=== PATIENT | male | born 1985 | race Caucasian/White ===

== ENCOUNTER 2024-03-25 09:10 | Emergency (ER) | payer OTHER ==
[2024-03-25] MEDS ORDERED: CEFEPIME 2 GM/100 ML BAG IVPB ONE (09:34)
[2024-03-25] MEDS: DIPHTH,PERTUSS(ACELL),TET 0.5 ML DISP.SYRIN IM ONE (09:48)
[2024-03-25] MEDS: CEFAZOLIN SODIUM 2 GM VIAL IVPB ONE (09:49)
[2024-03-25 09:58] LABS: BASO % 0.2 % (0-2.0); EOS % 2.3 % (0-4.5); HEMOGLOBIN 15.1 GM/dL (11.7-16.9); LYMPH % 37.7 % (8-40); MCH 28.7 pg (25.7-33.7); MCHC 34.4 g/dl (32.0-35.9); MEAN CELL VOLUME 83.6 fl (80-96); MEAN PLT VOLUME 9.2 fl (7.5-11.1); MONO % 4.6 % (3.8-10.2); NEUT % 55.2 % (42.8-82.8); PLATELET COUNT 131 10^3/uL (134-434); RBC 5.26 M/mm3 (4.00-5.60); RDW 12.8 % (11.9-15.9); WHITE BLOOD COUNT 6.3 K/mm3 (4.0-10.0)
[2024-03-25 10:06] LABS: INR 0.95 (0.83-1.09); PROTHROMBIN TIME (PATIENT) 10.8 SEC (9.7-13.0)
[2024-03-25 10:08] LABS: ACTIVATED PTT 24.7 SECONDS (25.2-36.5)
[2024-03-25 10:26] VITALS: RESP 18; BMI 25.5
[2024-03-25 10:28] LABS: POTASSIUM 3.7 mmol/L (3.5-5.1)
[2024-03-25 10:30] LABS: BLOOD UREA NITROGEN 15.5 mg/dL (7-18)
[2024-03-25 10:33] LABS: CREATININE 0.8 mg/dL (0.55-1.3)
[2024-03-25 11:57] VITALS: BP 117/71; PULSE 61; TEMP 98.5
== END 2024-03-25 12:47 | disposition short-term general hospital (02) ==
LOC: JER 09:10
PROC: 3E03329 Introduction of Other Anti-infective into Peripheral Vein, Percutaneous Approach (ICD-10-PCS; principal; 2024-03-25)
PROC: 3E0234Z Introduction of Serum, Toxoid and Vaccine into Muscle, Percutaneous Approach (ICD-10-PCS; 2024-03-25)
PROC: 0RSXXZZ Reposition Left Finger Phalangeal Joint, External Approach (ICD-10-PCS; 2024-03-25)
DX: S62.623B Displaced fracture of middle phalanx of left middle finger, initial encounter for open fracture (principal); W86.1XXA Exposure to industrial wiring, appliances and electrical machinery, initial encounter; Z20.822 Contact with and (suspected) exposure to COVID-19; Z23 Encounter for immunization
CPT/HCPCS: 36415; 73130-TC-LT-FY; 80048; 85025; 85610; 85730; 86850; 86900; 86901; 87635; 90715; 99285-25